=== PATIENT | female | born 1940 | race Caucasian/White ===

== ENCOUNTER 2016-10-05 06:26 | Inpatient (IN) | payer OTHER ==
[~2016-10-05] VITALS: Ht 160 cm; Wt 75.3 kg
[2016-10-05 07:02] VITALS: BP 150/82
[2016-10-05 13:35] VITALS: BP 124/68
[2016-10-05 14:11] LABS: BASOPHIL % 0.2 % (0-2); PLATELET COUNT 256 x10^3mcL (130-400); RED CELL DISTRIBUTION WIDTH 13.1 % (11.5-14.5)
[2016-10-05 14:24] LABS: ALKALINE PHOSPHATASE 60 U/L (46-116); ALT/SGPT 21 U/L (14-59); AST/SGOT 21 U/L (15-37); BILIRUBIN TOTAL 0.3 mg/dL (0.20-1.00); CALCIUM 8.4 mg/dL (8.5-10.1); CHLORIDE SERUM 108 mmol/L (98-107); CREATININE SERUM 0.9 mg/dL (0.6-1.0); GLUCOSE SERUM 207 mg/dL (74-106); HDL CHOLESTEROL 57 mg/dL (40-60); LIPASE 86 IU/L (73-393); POTASSIUM SERUM 3.8 mmol/L (3.5-5.1); SODIUM SERUM 143 mmol/L (136-145); TRIGLYCERIDES 78 mg/dL (<150)
[2016-10-05 14:25] LABS: ALBUMIN 2.8 g/dL (3.4-5.0); AMYLASE 24 U/L (25-115); CHOLESTEROL 129 mg/dL (<200); CHOLESTEROL/HDL RATIO 2.3; TOTAL PROTEIN, SERUM 5.5 g/dL (6.4-8.2)
[2016-10-05 14:41] LABS: T3 TOTAL 0.92 ng/mL
[2016-10-05 14:53] LABS: FREE T4 1.04 ng/dL (0.76-1.46); FREE THYROXINE INDEX 2.3 ug/dL (1.4-4.5); T4(THYROXINE) 6.4 ug/dL (4.7-13.3)
[2016-10-05 18:47] VITALS: BP 115/67
[2016-10-05 21:10] VITALS: Ht 160 cm; Wt 75.3 kg
[2016-10-05 21:56] VITALS: BP 122/71
[2016-10-06 06:00] VITALS: BP 130/58
[2016-10-06 06:06] LABS: BASOPHIL % 0.1 % (0-2); PLATELET COUNT 216 x10^3mcL (130-400); RED CELL DISTRIBUTION WIDTH 13.4 % (11.5-14.5)
[2016-10-06 06:35] LABS: CALCIUM 8.1 mg/dL (8.5-10.1); CARBON DIOXIDE 26.4 mmol/L (21-32); CHLORIDE SERUM 105 mmol/L (98-107); CREATININE SERUM 0.7 mg/dL (0.6-1.0); GLUCOSE SERUM 114 mg/dL (74-106); MAGNESIUM 1.6 mg/dL (1.8-2.4); PHOSPHOROUS 3.6 mg/dL (2.5-4.9); POTASSIUM SERUM 3.9 mmol/L (3.5-5.1); SODIUM SERUM 139 mmol/L (136-145)
[2016-10-06 10:00] VITALS: BP 109/62
[2016-10-06 12:42] LABS: microscopic required? YES; urine erythrocyte TRACE (NEGATIVE)
[2016-10-06 18:19] VITALS: BP 113/50
[2016-10-06 21:34] VITALS: BP 134/68
[2016-10-07 05:52] VITALS: BP 137/74
[2016-10-07 06:26] LABS: BASOPHIL % 0.3 % (0-2); PLATELET COUNT 221 x10^3mcL (130-400); RED CELL DISTRIBUTION WIDTH 13.7 % (11.5-14.5)
[2016-10-07 06:52] LABS: CARBON DIOXIDE 26.4 mmol/L (21-32); CHLORIDE SERUM 107 mmol/L (98-107); CREATININE SERUM 0.6 mg/dL (0.6-1.0); GLUCOSE SERUM 120 mg/dL (74-106); MAGNESIUM 1.9 mg/dL (1.8-2.4); PHOSPHOROUS 2.2 mg/dL (2.5-4.9); POTASSIUM SERUM 3.8 mmol/L (3.5-5.1); SODIUM SERUM 138 mmol/L (136-145)
[2016-10-07 09:49] VITALS: BP 127/67
[2016-10-07 18:02] VITALS: BP 110/61
[2016-10-07 18:04] VITALS: BP 125/80
[2016-10-07 21:00] VITALS: BP 116/57
[2016-10-08 05:45] VITALS: BP 120/61
[2016-10-08 06:53] LABS: CALCIUM 8.1 mg/dL (8.5-10.1); CARBON DIOXIDE 25.6 mmol/L (21-32); CHLORIDE SERUM 108 mmol/L (98-107); CREATININE SERUM 0.6 mg/dL (0.6-1.0); GLUCOSE SERUM 94 mg/dL (74-106); PHOSPHOROUS 2.6 mg/dL (2.5-4.9); POTASSIUM SERUM 3.8 mmol/L (3.5-5.1); SODIUM SERUM 141 mmol/L (136-145)
[2016-10-08 06:55] LABS: BASOPHIL % 1.3 % (0-2); PLATELET COUNT 211 x10^3mcL (130-400); RED CELL DISTRIBUTION WIDTH 12.7 % (11.5-14.5)
[2016-10-08] MEDS ORDERED: LOV40I SC (09:11)
[2016-10-08] MEDS ORDERED: FLE10 PO (09:11)
[2016-10-08] MEDS ORDERED: NIC14 TD (09:11)
[2016-10-08] MEDS ORDERED: COL100 PO (09:12)
[2016-10-08] MEDS ORDERED: PRI20 PO (09:12)
[2016-10-08] MEDS ORDERED: HYDROMORPHO1 MG/1 M1 IV (09:12)
[2016-10-08] MEDS ORDERED: ACETAMINOPHEN-H1 TA1 PO (09:12)
[2016-10-08] MEDS ORDERED: ZOFI IV (09:12)
[2016-10-08] MEDS ORDERED: TYL325 PO (09:12)
[2016-10-08 09:55] VITALS: BP 110/55
[2016-10-08 13:36] VITALS: BP 110/55
[2016-10-08 18:26] VITALS: BP 136/71
== END 2016-10-08 18:42 | DRG 469 ==
LOC: MU 06:26 → DU 07:30 → MU 10-08 18:42
PROVIDERS: Family Medicine; ADMIT Neuromusculoskeletal Medicine, Sports Medicine
PROC: 0SR902A Replacement of Right Hip Joint with Metal on Polyethylene Synthetic Substitute, Uncemented, Open Approach (ICD-10-PCS; principal; 2016-10-05 07:30)
DX: M16.11 Unilateral primary osteoarthritis, right hip (principal); E43 Unspecified severe protein-calorie malnutrition; N17.0 Acute kidney failure with tubular necrosis; E83.42 Hypomagnesemia; E83.39 Other disorders of phosphorus metabolism; R00.0 Tachycardia, unspecified; R80.8 Other proteinuria; D64.9 Anemia, unspecified; F17.200 Nicotine dependence, unspecified, uncomplicated; Z68.29 Body mass index [BMI] 29.0-29.9, adult
CPT/HCPCS: 83880; 84439; 97110-GP; 97116-GP; 97530-GP; C1776; J0690; J1170; J1650; J2405; J2704; J3010; J3475; J7030; J7120; Q0092